=== PATIENT | female | born 1965 | race Asian ===

== ENCOUNTER 2023-06-25 20:10 | Inpatient (IN) ==
[2023-06-25 23:02] LABS: Albumin Globulin Ratio 1.4 (0.9-2); Albumin Level 4.2 gm/dl (3.4-5.0); BUN Creatinine Ratio 21.5 (10-20); Bilirubin,Total 0.8 mg/dl (0.2-1.0); Calcium 9.5 mg/dl (8.6-10.3); Creatinine Clr Calc Pharmacy 73.3 ml/min; Est GFR (African American) 96.3 ml/min; Est GFR (Non-African American) 83.1 ml/min; Globulin 2.9 gm/dl (2.5-4.0); Potassium 3.5 mmol/L (3.5-5.1); Total Protein 7.1 gm/dl (6.0-8.3)
[2023-06-25 23:06] LABS: Basophils # (auto) 0.03 K/uL (0-0.2); Basophils % (auto) 0.4 %; Eosinophils # (auto) 0.01 K/uL (0-0.50); Eosinophils % (auto) 0.1 %; Hematocrit (blood only) 42.1 % (37.0-47.0); Hemoglobin 14.1 g/dl (12.0-16.0); Immature Granulocytes # (auto) 0.02 K/uL (0.01-0.20); Immature Granulocytes % (auto) 0.2 %; Lymphocytes # (auto) 1.51 K/uL (1.2-3.4); Lymphocytes % (auto) 18.3 %; Mean Corpuscular Hemoglobin 27.9 pg (25.0-34.0); Mean Corpuscular Hgb Conc 33.5 g/dL (32.0-36.0); Mean Corpuscular Volume 83.4 fL (80.0-100.0); Mean Platelet Volume 9.9 fL (9.4-12.4); Monocytes # (auto) 0.52 K/uL (0.11-0.59); Monocytes % (auto) 6.3 %; Neutrophils # (auto) 6.16 K/uL (1.40-6.50); Neutrophils % (auto) 74.7 %; Platelet Count 285 K/uL (130-400); RDW Coefficient of Variation 13.2 % (11.5-14.5); RDW Standard Deviation 40.1 fL (36.4-46.3); Red Blood Count 5.05 M/uL (4.20-5.40); White Blood Count 8.25 K/ul (4.8-10.8)
[2023-06-25] MEDS ORDERED: LORazepam 2 MG/1 ML VIAL IV PRN (23:27)
[2023-06-25] MEDS ORDERED: SODIUM CHLORIDE 0.9% 1000ML 1,000 ML IV SCH (23:30)
--- NOTE | 2023-06-25 23:44 | Emergency Department Note ---
Impression & Plan AMS (altered mental status) ED Provider Note ED Provider Note NAME: JULIAN VYAS AGE:58 SEX: Female : 1965 ARRIVES VIA: EMS INFORMANT: ED PROVIDER(s): Laura Rosales DO CHIEF COMPLAINT: Altered mental status, agitation, aggression HPI: This is a 58-year-old female who presents via EMS with her , a local physician who provides the history. He states patient had a reaction to a skin cream and was seen by dermatology on the . She was given an injection of Kenalog in the office. He states the facial swelling and redness improved, however today she began to become agitated and eventually aggressive to the point where he had to contact police who had to restrain her. He states that she does not take any medications, she has not recently been ill, no recent falls or trauma. No prior reactions to medications. No history of mental health issues. Patient was given 2 mg of Ativan by EMS and was able calm down. PAST MEDICAL HISTORY:See Below PAST SURGICAL HISTORY:See Below FAMILY HISTORY:See Below SOCIAL HISTORY:See Below HOME MEDICATIONS:See Below ALLERGIES:See Below VITALS:See Below PHYSICAL EXAMINATION: GENERAL: alert, well appearing, well nourished, no distress, non-toxic FACE: No evidence of facial swelling or erythema EYE EXAM: normal conjunctiva, PERRL and EOM's grossly intact OROPHARYNX: no exudate, no erythema, lips, buccal mucosa, and tongue normal and mucous membranes are moist NECK: supple, no nuchal rigidity, no adenopathy, non-tender LUNGS: Clear to auscultation. Normal chest wall mechanics, no w/r/r HEART: no murmurs, S1 normal and S2 normal ABDOMEN: abdomen soft, non-tender, normo-active bowel sounds, no masses, no rebound or guarding. SKIN: no rashes, petechiae, orbruising UPPER EXTREMITIES: upper extremities are grossly normal. FROM, nml pulses b/l. LOWER EXTREMITIES: No pitting edema. FROM, nml pulses b/l. NEURO EXAM: somnolent and mildly confused, cranial nerves II-XII grossly intact, normal speech, no facial droop,patient moving arms and legs spontaneously. Gross sensation intact. No ataxia. Vital Signs: reviewed and remarkable Differential Diagnosis: CVA, ICH, electrolyte abnormality, medication ADR, dehydration, dysrhythmia, as well as others were considered MEDICAL DECISION MAKING: This is a 58-year-old female presents emergency department with her at bedside due to concern for agitation, aggression, and altered mental status. Patient afebrile and vital signs stable. Labs drawn and sent, IV established, and patient placed on telemetry. Patient given gentle IV fluid hydration. Patient sent for head CT which was reassuring. Labs also reassuring however I did add additional labs after discussing the history with the at bedside. Case discussed with the hospitalist for additional evaluation and management. Patient did not require any additional Ativan while in the emergency room. No ectopy or dysrhythmia noted on telemetry. Vital signs were stable throughout. At this time I do not suspect occult infectious etiology or acute QUALITY PROCESS LEAD pathology. Patient had a nonfocal neuro exam, I do not suspect CVA. At this time I suspect more likely severe reaction to the steroid injection from dermatology. Consultation(s): 0150: Discussed with Dr. Saenz for additional evaluation and management. Other labs and UA still pending at this time. We did discuss results of labs and CT at this time. ER Treatment Provided: See below Diagnostics Interpreted By Me: -ECG: [] -Cardiac Monitoring: An order was placed for continuous cardiac monitoring. The monitor shows a rate of 80 with normal sinus rhythm. -Laboratory studies: As stated above and show below. -Imaging studies: CT head: no obvious ICH Triage Nursing Note Reviewed Prior/Outside Records Reviewed Past Med/Surg History Social History Smoking Status: Never smoker Second Hand Exposure: No; Do You Dip or Chew Tobacco: No; Tobacco Cessation Education Requested by Patient: No Hx Alcohol Use: No Hx Substance Use: No Preferred Language: Italian Communication Ability: Effective Lining Brusher Required: No Beliefs That Will Affect Care: None Current Living Situation: Spouse Other Information That Helps Us Care for You: No Feels Safe at Home: Yes Safety Concerns: Feels Safe At This Time Assistive Devices: None Allergies Allergies Allergy/AdvReac Type Severity Reaction Status Date / Time No Known Allergies Allergy Verified 06/25/23 23:30 Home Meds Home Medications Medication Instructions Recorded Confirmed acetaminophen 500 mg tablet 1,000 mg PO DIRECTED PRN Pain 06/25/23 06/25/23 (Tylenol Extra Strength) Results & Data (ED) Vital Signs Vital Signs - 24 hr 06/25/23 20:32 06/25/23 20:44 06/25/23 22:48 Temperature 36.8 C Temperature Source Oral Pulse Rate 96 H 88 Pulse Rate [Apical] Respiratory Rate 16 18 Respiratory Effort / Characteristics Non-Labored Spontaneous Non-Labored Spontaneous Respiratory Depth Normal Normal Respiratory Pattern Regular Regular Blood Pressure 118/75 Blood Pressure [Right Arm] 118/78 Blood Pressure Mean 89 Blood Pressure Mean [Right Arm] 91 Blood Pressure Position Lying Blood Pressure Position [Right Arm] Lying Pulse Oximetry 92 92 Oxygen Delivery Method Room Air Room Air Sepsis Recent Fever Within 48 Hours No Sepsis New/Unexplained Change in Mental Status No Sepsis Action Taken by Nursing No Action Required 06/25/23 23:30 06/26/23 01:00 Temperature Temperature Source Pulse Rate Pulse Rate [Apical] 78 75 Respiratory Rate 16 16 Respiratory Effort / Characteristics Respiratory Depth Respiratory Pattern Blood Pressure Blood Pressure [Right Arm] 114/76 103/66 Blood Pressure Mean Blood Pressure Mean [Right Arm] 88 78 Blood Pressure Position Blood Pressure Position [Right Arm] Pulse Oximetry 95 Oxygen Delivery Method Room Air Sepsis Recent Fever Within 48 Hours Sepsis New/Unexplained Change in Mental Status Sepsis Action Taken by Nursing Laboratory Data 06/25/23 20:41 06/25/23 20:41 Lab Results 06/25/23 06/25/23 06/25/23 Range/Units 20:41 20:41 20:41 WBC 8.25 (4.8-10.8) K/ul RBC 5.05 (4.20-5.40) M/uL Hgb 14.1 (12.0-16.0) g/dl Hct 42.1 (37.0-47.0) % MCV 83.4 (80.0-100.0) fL MCH 27.9 (25.0-34.0) pg MCHC 33.5 (32.0-36.0) g/dL RDW Std Deviation 40.1 (36.4-46.3) fL RDW Coeff of Kylee 13.2 (11.5-14.5) % Plt Count 285 (130-400) K/uL MPV 9.9 (9.4-12.4) fL Immature Gran % (Auto) 0.2 % Neut % (Auto) 74.7 % Lymph % (Auto) 18.3 % [place]cdowell % (Auto) 6.3 % Eos % (Auto) 0.1 % Baso % (Auto) 0.4 % Neut # (Auto) 6.16 (1.40-6.50) K/uL Lymph # (Auto) 1.51 (1.2-3.4) K/uL [place] # (Auto) 0.52 (0.11-0.59) K/uL Eos # (Auto) 0.01 (0-0.50) K/uL Baso # (Auto) 0.03 (0-0.2) K/uL Immature Gran # (Auto) 0.02 (0.01-0.20) K/uL Sodium 136 (136-145) mmol/L Potassium 3.5 (3.5-5.1) mmol/L Chloride 104 (98-107) mmol/L Carbon Dioxide 23 (21-32) mmol/L Anion Gap 9 (3-11) BUN 17 (6-23) mg/dl Creatinine 0.79 (0.6-1.2) mg/dl Est Cr Clr Drug Dosing 73.3 ml/min Est GFR ( Amer) 96.3 ml/min Est GFR (Non-Af Amer) 83.1 ml/min BUN/Creatinine Ratio 21.5 H (10-20) Glucose 149 H (70-99(Fasting)) mg/dl Calcium 9.5 (8.6-10.3) mg/dl Magnesium 2.0 (1.7-2.4) mg/dl Total Bilirubin 0.8 (0.2-1.0) mg/dl AST 17 (13-39) U/L ALT 20 (7-52) U/L Alkaline Phosphatase 68 (34-104) U/L Troponin I High Sens 2.6 (0-14) pg/ml Total Protein 7.1 (6.0-8.3) gm/dl Albumin 4.2 (3.4-5.0) gm/dl Globulin 2.9 (2.5-4.0) gm/dl Albumin/Globulin Ratio 1.4 (0.9-2) TSH 1.839 (0.300-4.500) uIu/ml Anaplasma Smear Babesia Smear Lyme Disease IgG Ab (Negative) Lyme Disease IgM Ab (Negative) SARS-CoV-2 (PCR) (Negative) Influenza Type A (PCR) (Neg) Influenza Type B (PCR) (Neg) RSV (RT-PCR) (Neg) 06/26/23 06/26/23 06/26/23 Range/Units 00:08 00:08 01:50 WBC (4.8-10.8) K/ul RBC (4.20-5.40) M/uL Hgb (12.0-16.0) g/dl Hct (37.0-47.0) % MCV (80.0-100.0) fL MCH (25.0-34.0) pg MCHC (32.0-36.0) g/dL RDW Std Deviation (36.4-46.3) fL RDW Coeff of Kylee (11.5-14.5) % Plt Count (130-400) K/uL MPV (9.4-12.4) fL Immature Gran % (Auto) % Neut % (Auto) % Lymph % (Auto) % [place] % (Auto) % Eos % (Auto) % Baso % (Auto) % Neut # (Auto) (1.40-6.50) K/uL Lymph # (Auto) (1.2-3.4) K/uL [place] # (Auto) (0.11-0.59) K/uL Eos # (Auto) (0-0.50) K/uL Baso # (Auto) (0-0.2) K/uL Immature Gran # (Auto) (0.01-0.20) K/uL Sodium (136-145) mmol/L Potassium (3.5-5.1) mmol/L Chloride (98-107) mmol/L Carbon Dioxide (21-32) mmol/L Anion Gap (3-11) BUN (6-23) mg/dl Creatinine (0.6-1.2) mg/dl Est Cr Clr Drug Dosing ml/min Est GFR ( Amer) ml/min Est GFR (Non-Af Amer) ml/min BUN/Creatinine Ratio (10-20) Glucose (70-99(Fasting)) mg/dl Calcium (8.6-10.3) mg/dl Magnesium (1.7-2.4) mg/dl Total Bilirubin (0.2-1.0) mg/dl AST (13-39) U/L ALT (7-52) U/L Alkaline Phosphatase (34-104) U/L Troponin I High Sens (0-14) pg/ml Total Protein (6.0-8.3) gm/dl Albumin (3.4-5.0) gm/dl Globulin (2.5-4.0) gm/dl Albumin/Globulin Ratio (0.9-2) TSH (0.300-4.500) uIu/ml Anaplasma Smear See Comment Babesia Smear See Comment Lyme Disease IgG Ab Negative (Negative) Lyme Disease IgM Ab Equivocal A (Negative) SARS-CoV-2 (PCR) NEGATIVE (Negative) Influenza Type A (PCR) Negative (Neg) Influenza Type B (PCR) Negative (Neg) RSV (RT-PCR) Negative (Neg) Administered Medications Sodium Chloride (Nss 1000ml) 1,000 mls @ 100 mls/hr IV .Q10H KWESI Stop: 06/27/23 00:25 Last Admin: 06/26/23 05:20 Dose: 100 mls/hr Documented By: EKF Doxycycline Hyclate 100 mg/ (Dextrose) 110 mls @ 50 mls/hr IV Q12H KWESI Stop: 07/06/23 04:29 Last Admin: 06/26/23 05:20 Dose: 50 mls/hr Documented By: EKF Discontinued Medications Sodium Chloride (Nss 1000ml) 1,000 mls @ 125 mls/hr IV .Q8H KWESI Stop: 07/25/23 23:29 Last Infusion: 06/26/23 04:45 Dose: 0 mls/hr Documented By: Admin: 06/26/23 00:05 Dose: 125 mls/hr Documented By: KMF Lorazepam (Lorazepam 2 Mg/1 Ml Vial) 0.5 mg IV Q1H PRN PRN Reason: Anxiety/Agitation Stop: 07/25/23 23:26 Last Admin: 06/25/23 23:52 Dose: 0.5 mg Documented By: CARLYF Imaging Data Radiologist's Impression: Head CT 06/25/23 23:27 Exam(s): CT HEAD Without Contrast EXAM: CT Head Without Intravenous Contrast CLINICAL HISTORY: Reason for exam: ams. TECHNIQUE: Axial computed tomography images of the head/brain without intravenous contrast. CTDI is 38.31 mGy and DLP is 625.8 mGy-cm. Automated exposure control was utilized for the study. A dose lowering technique was utilized adhering to the principles of ALARA. COMPARISON: No relevant prior studies available. FINDINGS: Brain: Unremarkable. No hemorrhage. No significant white matter disease. No edema. Ventricles: Unremarkable. No ventriculomegaly. Bones/joints: Unremarkable. No acute fracture. Soft tissues: Unremarkable. Sinuses: Unremarkable as visualized. No acute sinusitis. Mastoid air cells: Unremarkable as visualized. No mastoid effusion. IMPRESSION: Normal head/brain CT. Electronically signed by: Christos Samayoa MD 06/26/23 00:17 AM Discharge Plan Visit Data Chief Complaint: Allergic Reaction Stated Complaint: Medication Reaction, Hallucinations, Combattive ED Provider: Laura Rosales Discharge Problem: AMS (altered mental status) Patient Disposition: Admitted As Inpatient Discharge Instructions Interventions: ED Discharge Assessment Last Done: 06/26/23 03:50
--- NOTE | 2023-06-26 00:18 | CT Scan Report ---
Exam(s): CT HEAD Without Contrast EXAM: CT Head Without Intravenous Contrast CLINICAL HISTORY: Reason for exam: ams. TECHNIQUE: Axial computed tomography images of the head/brain without intravenous contrast. CTDI is 38.31 mGy and DLP is 625.8 mGy-cm. Automated exposure control was utilized for the study. A dose lowering technique was utilized adhering to the principles of ALARA. COMPARISON: No relevant prior studies available. FINDINGS: Brain: Unremarkable. No hemorrhage. No significant white matter disease. No edema. Ventricles: Unremarkable. No ventriculomegaly. Bones/joints: Unremarkable. No acute fracture. Soft tissues: Unremarkable. Sinuses: Unremarkable as visualized. No acute sinusitis. Mastoid air cells: Unremarkable as visualized. No mastoid effusion. IMPRESSION: Normal head/brain CT. Electronically signed by: Christos Samayoa MD 06/26/23 00:17 AM
[2023-06-26 00:22] LABS: Troponin I High Sensitivity 2.6 pg/ml (0-14)
[2023-06-26 01:07] LABS: Lyme Ab IgG w/WB Rflx Negative (Negative)
[2023-06-26 01:12] LABS: Lyme Ab IgM w/WB Rflx Equivocal (Negative)
[2023-06-26 02:45] LABS: Influenza A virus by PCR Negative (Neg); Influenza B virus by PCR Negative (Neg); RSV by PCR Negative (Neg); SARS CoV2 RNA(COVID-19) Ceph NEGATIVE (Negative)
[2023-06-26] MEDS ORDERED: POLYETHYLENE (MIRALAX) 17 GM PACK PO PRN (04:26)
[2023-06-26] MEDS ORDERED: SODIUM CHLORIDE 0.9% 1000ML 1,000 ML IV SCH (04:26)
[2023-06-26] MEDS ORDERED: HALOPERIDOL LACTATE 5 MG/ML 1 ML VIAL IM PRN (04:26)
[2023-06-26] MEDS ORDERED: DOXYCYCLINE HYCLATE 100 MG in DEXTROSE 5% 100 ML IV SCH ×2 (04:30→22:00)
[2023-06-26 06:12] LABS: Appearance Urine Cloudy (Clear); Bacteria Urine Automated Negative (Negative); Bilirubin Urine Negative (Negative); Blood Urine Negative (Negative); Color Urine Yellow; Glucose Urine UA Negative (Negative); Ketones Urine 1+ (Negative); Leukocyte Esterase Urine Negative (Negative); Nitrite Urine Negative (Negative); Protein Urine Negative (Negative); RBC Urine Automated 0-4 /hpf (0-4); Specific Gravity Urine 1.021 (1.000-1.030); Urobilinogen Urine Negative (Negative); pH Urine 5.5 (4.5-7.5)
--- NOTE | 2023-06-26 07:39 | History & Physical Report ---
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 Patient had his reaction to skin cream and sent to dermatology on June 17 and is given a steroid injection Kenalog in the office. Last 2 -3 days patient is getting agitated as per the 's who is a [facility] physician. Last night patient was very agitated asked to call police restrain her and EMS give 2 mg IV Ativan to calm her down. Patient was apparently fine for the steroid injection has no recent illness or falls as per the ER . Patient is mostly drowsy denies any pain. in the room helped with most of H&P. Afebrile. No complaints of chest pain or shortness of breath. No nausea. Currently hemodynamically stable. Past medical history as mentioned above Past surgical history colonoscopy, IR biopsy, removal of submaxillary gland on the right side. Social history no smoking no alcohol no drug use Family history paternal cousin has breast cancer Allergies Allergy/AdvReac Type Severity Reaction Status Date / Time No Known Allergies Allergy Verified 06/25/23 23:30 Home Medications Medication Instructions Recorded Confirmed Type acetaminophen 500 mg tablet 1,000 mg PO DIRECTED PRN Pain 06/25/23 06/25/23 History (Tylenol Extra Strength) Past Med/Surg History Social History Smoking Status: Never smoker Second Hand Exposure: No; Do You Dip or Chew Tobacco: No; Tobacco Cessation Education Requested by Patient: No Hx Alcohol Use: No Hx Substance Use: No Preferred Language: Korean Communication Ability: Effective Automatic Chief Required: No Beliefs That Will Affect Care: None Current Living Situation: Spouse Other Information That Helps Us Care for You: No Feels Safe at Home: Yes Safety Concerns: Feels Safe At This Time Assistive Devices: None Review of Systems Review of Systems: Unobtainable due to reduced consciousness Physical Exam Physical Exam: General- Drowsy Head- atraumatic Eyes- PERRL ENT- oropharynx dry Neck- supple, no JVD, Lungs- clear to auscultation and percussion, no added sounds Heart- regular rate rhythm; no murmur, no gallop, Abdomen- normal bowel sounds, soft, nontender, no distension Extremities- no pretibial edema, no erythema Neuro- drowsy, moves extremities Skin- warm & dry Results & Data Results & Data Vital Signs (Past 12 Hours) Vital Signs Temp Pulse Pulse Pulse Resp BP BP 06/26/23 07:11 36.6 C 80 15 131/83 06/26/23 04:26 36.3 C L 80 18 127/82 06/26/23 03:28 70 16 123/73 06/26/23 01:00 75 16 103/66 06/25/23 23:30 78 16 114/76 06/25/23 22:48 18 118/78 06/25/23 20:44 36.8 C 88 16 118/75 06/25/23 20:32 96 H Pulse Ox O2 Del Method 06/26/23 07:11 97 Room Air 06/26/23 04:26 98 Room Air 06/26/23 03:28 06/26/23 01:00 95 Room Air 06/25/23 23:30 06/25/23 22:48 92 Room Air 06/25/23 20:44 92 Room Air 06/25/23 20:32 Diagnostic Findings Laboratory Results WBC 8.25 K/ul (4.8-10.8) 06/25/23 20:41 RBC 5.05 M/uL (4.20-5.40) 06/25/23 20:41 Hgb 14.1 g/dl (12.0-16.0) 06/25/23 20:41 Hct 42.1 % (37.0-47.0) 06/25/23 20: MCV 83.4 fL (80.0-100.0) 06/25/23 20: MCH 27.9 pg (25.0-34.0) 06/25/23 20:41 MCHC 33.5 g/dL (32.0-36.0) 06/25/23 20: RDW Std Deviation 40.1 fL (36.4-46.3) 06/25/23 20: RDW Coeff of Kylee 13.2 % (11.5-14.5) 06/25/23 20: Plt Count 285 K/uL (130-400) 06/25/23 20: MPV 9.9 fL (9.4-12.4) 06/25/23 20: Immature Gran % (Auto) 0.2 % 06/25/23 20: Neut % (Auto) 74.7 % 06/25/23 20: Lymph % (Auto) 18.3 % 06/25/23 20:41 [place] % (Auto) 6.3 % 06/25/23 20: Eos % (Auto) 0.1 % 06/25/23 20: Baso % (Auto) 0.4 % 06/25/23 20:41 Neut # (Auto) 6.16 K/uL (1.40-6.50) 06/25/23 20:41 Lymph # (Auto) 1.51 K/uL (1.2-3.4) 06/25/23 20:41 [place] # (Auto) 0.52 K/uL (0.11-0.59) 06/25/23 20:41 Eos # (Auto) 0.01 K/uL (0-0.50) 06/25/23 20:41 Baso # (Auto) 0.03 K/uL (0-0.2) 06/25/23 20:41 Immature Gran # (Auto) 0.02 K/uL (0.01-0.20) 06/25/23 20:41 Sodium 136 mmol/L (136-145) 06/25/23 20:41 Potassium 3.5 mmol/L (3.5-5.1) 06/25/23 20:41 Chloride 104 mmol/L (98-107) 06/25/23 20:41 Carbon Dioxide 23 mmol/L (21-32) 06/25/23 20:41 Anion Gap 9 (3-11) 06/25/23 20:41 BUN 17 mg/dl (6-23) 06/25/23 20:41 Creatinine 0.79 mg/dl (0.6-1.2) 06/25/23 20:41 Est Cr Clr Drug Dosing 73.3 ml/min 06/25/23 20:41 Est GFR ( Amer) 96.3 ml/min 06/25/23 20:41 Est GFR (Non-Af Amer) 83.1 ml/min 06/25/23 20:41 BUN/Creatinine Ratio 21.5 (10-20) H 06/25/23 20:41 Glucose 149 mg/dl (70-99(Fasting)) H 06/25/23 20:41 Calcium 9.5 mg/dl (8.6-10.3) 06/25/23 20:41 Magnesium 2.0 mg/dl (1.7-2.4) 06/25/23 20:41 Total Bilirubin 0.8 mg/dl (0.2-1.0) 06/25/23 20:41 AST 17 U/L (13-39) 06/25/23 20:41 ALT 20 U/L (7-52) 06/25/23 20:41 Alkaline Phosphatase 68 U/L (34-104) 06/25/23 20:41 Troponin I High Sens 2.6 pg/ml (0-14) 06/25/23 20:41 Total Protein 7.1 gm/dl (6.0-8.3) 06/25/23 20:41 Albumin 4.2 gm/dl (3.4-5.0) 06/25/23 20:41 Globulin 2.9 gm/dl (2.5-4.0) 06/25/23 20:41 Albumin/Globulin Ratio 1.4 (0.9-2) 06/25/23 20:41 TSH 1.839 uIu/ml (0.300-4.500) 06/25/23 20:41 Urine Color Yellow 06/26/23 05:40 Urine Appearance Cloudy (Clear) A 06/26/23 05:40 Urine pH 5.5 (4.5-7.5) 06/26/23 05:40 Ur Specific [place] 1.021 (1.000-1.030) 06/26/23 05:40 Urine Protein Negative (Negative) 06/26/23 05:40 Urine Glucose (UA) Negative (Negative) 06/26/23 05:40 Urine Ketones 1+ (Negative) H 06/26/23 05:40 Urine Blood Negative (Negative) 06/26/23 05:40 Urine Nitrite Negative (Negative) 06/26/23 05:40 Urine Bilirubin Negative (Negative) 06/26/23 05:40 Urine Urobilinogen Negative (Negative) 06/26/23 05:40 Ur Leukocyte Esterase Negative (Negative) 06/26/23 05:40 Urine WBC (Auto) 1-5 /hpf (0-5) 06/26/23 05:40 Urine RBC (Auto) 0-4 /hpf (0-4) 06/26/23 05:40 U Hyaline Cast (Auto) 1-5 /lpf (0-5) 06/26/23 05:40 U Epithel Cells (Auto) 10-20 /lpf (0-5) H 06/26/23 05:40 Urine Bacteria (Auto) Negative (Negative) 06/26/23 05:40 Anaplasma Smear See Comment 06/26/23 00:08 Babesia Smear See Comment 06/26/23 00:08 Lyme Disease IgG Ab Negative (Negative) 06/26/23 00:08 Lyme Disease IgM Ab Equivocal (Negative) A 06/26/23 00:08 SARS-CoV-2 (PCR) NEGATIVE (Negative) 06/26/23 01:50 Influenza Type A (PCR) Negative (Neg) 06/26/23 01:50 Influenza Type B (PCR) Negative (Neg) 06/26/23 01:50 RSV (RT-PCR) Negative (Neg) 06/26/23 01:[address] 06/25/23 23:27 Exam(s): CT HEAD Without Contrast EXAM: CT Head Without Intravenous Contrast CLINICAL HISTORY: Reason for exam: ams. TECHNIQUE: Axial computed tomography images of the head/brain without intravenous contrast. CTDI is 38.31 mGy and DLP is 625.8 mGy-cm. Automated exposure control was utilized for the study. A dose lowering technique was utilized adhering to the principles of ALARA. COMPARISON: No relevant prior studies available. FINDINGS: Brain: Unremarkable. No hemorrhage. No significant white matter disease. No edema. Ventricles: Unremarkable. No ventriculomegaly. Bones/joints: Unremarkable. No acute fracture. Soft tissues: Unremarkable. Sinuses: Unremarkable as visualized. No acute sinusitis. Mastoid air cells: Unremarkable as visualized. No mastoid effusion. IMPRESSION: Normal head/brain CT. Electronically signed by: Christos Samayoa MD 06/26/23 00:17 AM Code Status & VTE Plan VTE Prophylaxis Plan VTE Prophylaxis will be ordered: Yes
[2023-06-26] MEDS: ENOXAPARIN INJ 40 MG/0.4 ML SYR SQ SCH (08:02)
[2023-06-26 08:03] LABS: Calcium 8.9 mg/dl (8.6-10.3); Magnesium 2.1 mg/dl (1.7-2.4); Potassium 3.8 mmol/L (3.5-5.1)
[2023-06-26 08:05] LABS: Basophils # (auto) 0.03 K/uL (0-0.2); Basophils % (auto) 0.4 %; Eosinophils # (auto) 0.04 K/uL (0-0.50); Eosinophils % (auto) 0.5 %; Hematocrit (blood only) 39.9 % (37.0-47.0); Hemoglobin 13.5 g/dl (12.0-16.0); Immature Granulocytes # (auto) 0.01 K/uL (0.01-0.20); Immature Granulocytes % (auto) 0.1 %; Lymphocytes # (auto) 2.47 K/uL (1.2-3.4); Lymphocytes % (auto) 31.7 %; Mean Corpuscular Hgb Conc 33.8 g/dL (32.0-36.0); Mean Corpuscular Volume 82.8 fL (80.0-100.0); Mean Platelet Volume 9.6 fL (9.4-12.4); Monocytes # (auto) 0.59 K/uL (0.11-0.59); Monocytes % (auto) 7.6 %; Neutrophils # (auto) 4.64 K/uL (1.40-6.50); Neutrophils % (auto) 59.7 %; Platelet Count 237 K/uL (130-400); RDW Coefficient of Variation 13.4 % (11.5-14.5); RDW Standard Deviation 40.2 fL (36.4-46.3); Red Blood Count 4.82 M/uL (4.20-5.40); White Blood Count 7.78 K/ul (4.8-10.8)
[2023-06-26 08:09] LABS: BUN Creatinine Ratio 27.3 (10-20); Creatinine Clr Calc Pharmacy 105.3 ml/min; Est GFR (African American) 120.7 ml/min; Est GFR (Non-African American) 104.1 ml/min
--- NOTE | 2023-06-26 12:55 | Electrocardiogram Report ---
Test Reason : Blood Pressure : / mmHG Vent. Rate : 080 BPM Atrial Rate : 080 BPM P-R Int : 144 ms QRS Dur : 078 ms QT Int : 374 ms P-R-T Axes : 064 048 050 degrees QTc Int : 431 ms Normal sinus rhythm with sinus arrhythmia Left atrial enlargement Borderline ECG No previous ECGs available Confirmed by Keenan Petersen ([id number]) on 06/26/2023 12:54:53 PM Referred By: REFERRED SELF Confirmed By:Keenan Petersen
--- NOTE | 2023-06-26 17:47 | Hospitalist Progress Note ---
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 Acute gavi -Being attributed to steroid induced psychosis but her last exposure to steroid was 06/17. -History in the past of what sounds to be manic episodes ("mind racing", being unable to sleep for prolonged periods of time) -I am concerned she may have underlying mood disorder. Will ask for psychiatry consultation -Has not required ativan or haldol PRN while on unit. 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 Once in the morning and again in the afternoon. She is calm but becomes easily agitated. In the afternoon, she was exhibiting paranoid behavior and would not let me stand near her bed or touch anything in the room. Her speech is quite pressure d and rambling making history taking difficult. and son present in room during morning encounter. Son present in room during afternoon encounter. It appears patient has a history of psychosis attributed to steroid exposure. But she also recounts periods of time when she had diffculty sleeping-- she describes a 10 day period of sleeplessness because she was "jet lagged" Her last steroid exposure was 06/17/23 Patient admits that her mind is "racing" and has difficulty controlling her emotions. Review of Systems Review of Systems: as above Physical Exam Physical Exam: Calm, easily agitated and angry Respiratory: breathing comfortably on room air, no wheezing/rhonchi Cardiovascular: regular rate and rhythm, no murmurs Gastrointestinal (Abdomen): soft, non tender Musculoskeletal: No edema Neurologic: awake, alert, spontaneously moving extremities Psychiatric: speech is pressured, both tangential and circumferential, exhibits paranoid behavior Results & Data Results & Data Vital Signs (Past 12 Hours) Vital Signs Temp Pulse Resp BP Pulse Ox O2 Del Method 06/26/23 14:54 36.5 C 89 15 117/74 95 Room Air 06/26/23 07:11 36.6 C 80 15 131/83 97 Room Air
[2023-06-26] MEDS ORDERED: DOXYCYCLINE HYCLATE 100 MG CAP PO SCH (21:00)
[2023-06-26] MEDS: ACETAMINOPHEN 325 MG TAB PO PRN ×2 (22:08→22:26)
[2023-06-26] MEDS ORDERED: LORazepam 2 MG/1 ML VIAL IV STA (22:29)
[2023-06-26] MEDS ORDERED: LORazepam 0.5 MG TAB PO STA (22:30)
[2023-06-26] MEDS: DOXYCYCLINE SUSP 25 MG/5 ML 60ML PO SCH (22:51)
[2023-06-27] MEDS: ACETAMINOPHEN 325 MG TAB PO PRN ×2 (05:05→12:06)
[2023-06-27] MEDS: ENOXAPARIN INJ 40 MG/0.4 ML SYR SQ SCH (07:03)
[2023-06-27] MEDS: DOXYCYCLINE SUSP 25 MG/5 ML 60ML PO SCH (08:44)
--- NOTE | 2023-06-27 11:02 | Psychiatric Consultation ---
Date of Consultation June 27, 2023 Impression / Recommendations Impression Diagnostically consistent with unspecified mood disorder with differential including gavi 2/2 steroid use versus BPAD type II with emergence of gavi in setting of steroid use versus hyperactive delirium. Psychiatric history suggestive of possible history of BPAD type II given reports of past possible episodes of hypomania versus ADHD versus OCD with periods of hyperfixation and insomnia. Given history of steroid-induced mood changes would caution any future steroid use and if absolutely necessary consider using olanzapine while on steroids to help protect sleep patterns and reduce likelihood of emergence of gavi/agitation. Given question of possible BPAD type II recommend outpatient psychiatry follow- up for diagnostic clarification and monitoring to ensure full resolution of suspected steroid-induced mood symptoms and consideration for mood stabilizer such as lamictal moving forward. (1) Mood disorder due to a general medical condition: (2) Bipolar 2 disorder: (3) History of recent steroid use: Plan -Recommend olanzapine 2.5mg PO BID or 5mg HS for next 2-3 days to ensure resolution of symptoms with additional two week supply available as needed if symptoms of gavi/psychosis persist or re-emerge. 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 Psychiatry consulted for recommendations for management given concern for possible gavi. Chief Complaint "I'm here for an emergency with me, it was imaginary but felt real to me". History of Present Illness Clarisa had a recent steroid injection and then started to have decreased sleep and abrupt change in behavior with increased agitation and aggression. She has never been aggressive before and today denies that she would ever want to hurt anyone. She recalls not sleeping well since having the steroid and got confused by a pop-up ad on her grandchildren's ipad and felt paranoid from this. Feels that her thoughts become "hyperactive" after taking steroids and she has difficulty slowing down her thoughts or shutting them off to go to sleep. She remains somewhat circumferential in her thought process today but is fully oriented and can describe past episodes of racing thoughts and poor sleep after requiring steroids last fall and around [facility] but never to this extent/extreme. Her son is at bedside and shares that his mother will at times go 2-3 weeks only sleeping 2-3 hours per night and Clarisa recalls having more energy during these episodes, wanting to get lots of organizing done in the house and is often less bothered by physical pain limitations during these episodes. Both deny any history of grandiosity or acute delusions during this times but her notes that she is often more irritable during these episodes. She denies any history of formal psychiatric diagnoses but family has wondered about possible ADHD or OCD. She has experienced depression and anxiety before. Denies any history of psychiatric hospitalizations nor medication trials. No history of suicide attempts. Family history of mother with anxiety and depression, daughter with ADHD. No history of substance use or use of any new supplements. Allergies Allergy/AdvReac Type Severity Reaction Status Date / Time No Known Allergies Allergy Verified 06/25/23 23:30 Home Medications Medication Instructions Recorded Confirmed Type acetaminophen 500 mg tablet 1,000 mg PO DIRECTED PRN Pain 06/25/23 06/25/23 History (Tylenol Extra Strength) doxycycline monohydrate 25 mg/5 mL 100 mg (20 mL) PO BID 8 days #320 06/27/23 Rx oral suspension mL olanzapine 2.5 mg tablet 2.5 mg PO BID #30 tabs 06/27/23 Rx Patient History Social History Smoking Status: Never smoker Second Hand Exposure: No; Do You Dip or Chew Tobacco: No; Hx Alcohol Use: No Hx Substance Use: No Preferred Language: Bulgarian Communication Ability: Effective Boiler Cleaner Required: No Beliefs That Will Affect Care: None Current Living Situation: Spouse Feels Safe at Home: Yes Assistive Devices: None Physical Exam Psychiatric: Orientation: alert, oriented x 3 and cooperative Apperance: appropriately dressed and appropriately groomed Eye Contact: good eye contact Motor Behavior: no abnormal motor movements; no psychomotor agitation Speech: normal rate/rhythm/volume of speech (expansive); no pressured speech Affect: + anxious affect Mood: + anxious mood Thought Process: + circumstantial thought process Thought Content: reality based without delusions Suicidal Thoughts: denies suicidal thoughts Homicidal Thoughts: denies homicidal thoughts Hallucinations: no auditory hallucinations and no visual hallucinations Insight: + fair insight Judgment: + fair judgement Vital Signs (Past 24 Hours): Last Vital Signs Temp 36.4 C L 06/27/23 07:10 Pulse 79 06/27/23 07:10 Resp 14 06/27/23 07:10 BP 99/59 L 06/27/23 07:10 Pulse Ox 94 06/27/23 07:10 O2 Del Method Room Air 06/27/23 07:10 Review of Systems All systems reviewed & are unremarkable except as noted in HPI & below Results & Data (PSY) Laboratory Results Na+ 136 & 135 Diagnostic Findings QTc normal on EKG on 06/26/2023 Medications Administered Acetaminophen (Acetaminophen 325 Mg Tab) 650 mg PO Q4H PRN PRN Reason: pain/fever Stop: 07/26/23 04:25 Last Admin: 06/27/23 05:05 Dose: 650 mg Documented By: Admin: 06/26/23 22:26 Dose: 650 mg Documented By: DILLAN Doxycycline Monohydrate (Doxycycline Susp 25 Mg/5 Ml 60ml) 100 mg PO BID [facility] Stop: 07/06/23 22:44 Last Admin: 06/27/23 08:44 Dose: 100 mg Documented By: Admin: 06/26/23 22:51 Dose: 100 mg Documented By: DILLAN Enoxaparin Sodium (Enoxaparin Inj 40 Mg/0.4 Ml Syr) 40 mg SQ Q24H [facility] Stop: 07/26/23 08:59 Last Admin: 06/27/23 07:03 Dose: Not Given Documented By: Admin: 06/26/23 08:02 Dose: Not Given Documented By: ZAC Coding Level of Care Code 26765 IN/OBS CONSULT LVL 4,60M Diagnoses Mood disorder due to a general medical condition F06.30 Bipolar 2 disorder F31.81 History of recent steroid use Z92.241 Time Spent (min) 75
[2023-06-27] MEDS ORDERED: OLANZapine ZYDIS 5 MG ORALLY DIS. TAB PO SCH ×2 (11:15→21:00)
[2023-06-28 03:09] LABS: 18KDIGG Band NON-REACTIVE; 23KDIGG Band NON-REACTIVE; 23KDIGM Band NON-REACTIVE; 28KDIGG Band NON-REACTIVE; 30KDIGG Band NON-REACTIVE; 39KDIGG Band NON-REACTIVE; 39KDIGM Band NON-REACTIVE; 41KDIGG Band NON-REACTIVE; 41KDIGM Band NON-REACTIVE; 45KDIGG Band NON-REACTIVE; 58KDIGG Band NON-REACTIVE; 66KDIGG Band NON-REACTIVE; 93KDIGG Band NON-REACTIVE; Lyme Antibodies, WB IgG NEGATIVE (NEGATIVE); Lyme Antibodies, WB IgM NEGATIVE (NEGATIVE)
[2023-06-29 05:08] LABS: Babesia microti DNA Not Detected (Not Detected)
[2023-07-01 11:09] LABS: Ehrlichia chaff DNA Bld Negative (Negative)
--- NOTE | 2023-07-01 21:02 | Discharge Summary ---
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 Patient had his reaction to skin cream and sent to dermatology on June 17 and is given a steroid injection Kenalog in the office. Last 2 -3 days patient is getting agitated as per the hunter franco's who is a [facility] physician. Last night patient was very agitated asked to call police restrain her and EMS give 2 mg IV Ativan to calm her down. Patient was apparently fine for the steroid injection has no recent illness or falls as per the ER . Patient is mostly drowsy denies any pain. in the room helped with most of H&P. Afebrile. No complaints of chest pain or shortness of breath. No nausea. Currently hemodynamically stable. Past medical history as mentioned above Past surgical history colonoscopy, IR biopsy, removal of submaxillary gland on the right side. Social history no smoking no alcohol no drug use Family history paternal cousin has breast cancer Principal Diagnosis Acute gaiv/psychosis Equivocal lyme test result Discharge Exam Drowsy but arousable, pleasant and cooperative Respiratory breathing comfortably on room air Cardiovascular regular rate and rhythm, no murmurs/rubs Neurologic drowsy but arousable, answers questions appropriately, spontaneously moving extremities Discharge Data Allergies Allergy/AdvReac Type Severity Reaction Status Date / Time No Known Allergies Allergy Verified 06/25/23 23:30 Consultations 06/26/23 01:52 ED Decision to Admit Stat 06/26/23 17:42 Consult Psychiatry Routine Ordered Studies 06/25/23 23:27 CT head/brain wo con Stat Hospital Course (1) AMS (altered mental status): 58-year-old female with past medical significant for 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 Acute gavi -Being attributed to steroid induced psychosis but her last exposure to steroid was 06/17. -History in the past of what sounds to be manic episodes ("mind racing", being unable to sleep for prolonged periods of time) -May have underlying bipolar disorder -Was seen by psychiatry here and recommend trial of olanzapine 0.25mg BID (initially 0.5mg BID was recommended but dose reduced due to drowsiness). Plan to be on olanzapine for next 2-3 days then as needed there after -Patient will need to follow up with a psychiatrist after discharge for further evaluation History of right submaxillary gland adenocarcinoma s/p surgery and radiation 2011 Questionable Lyme disease Equivocal Lyme screen. Western Blot ultimately negative (it was pending at discharge) Patient provided with prescription for doxycycline to keep on hand in the event her Western Blot came back positive. [facility] site safety coordinator was requested to notify family of negative result Total Time Total Time Spent Total Time Spent (In Minutes): 35 Discharge Plan Discharge Items Patient Disposition: Home - Self-Care Reason For Visit: AGITATION Discharge Diagnosis: Acute gavi/psychosis Equivocal lyme test result Condition on Discharge: Good Activity: Resume your previous activity Non-emergency contact: Primary Care Provider and Psychiatrist Call non-emergency contact if: you have any medication questions Follow-up/Referrals: Isidro Staton DO [Primary Care Provider] - (Date & Time 07/02/2023 1:40 PM Provider Isidro Staton DO Department [facility] ) Diet: Regular Addtl Attending Provider Instructions: You will be discharged on olanzapine 2.5mg twice a day x 2-3 days then twice a day as needed thereafter. 14 day course will be prescribed Please follow up with a psychiatrist to evaluate for underlying Bipolar Disorder Your Lyme Screen was Equivocal. Western Blot is still pending. We will notify you with result next Friday/Friday. Please reach out if you haven't heard back from us by Friday Pending Studies at Discharge: Yes Studies:: Lyme Western Blot Stand-Alone Forms: [facility] Medications and DC Order Prescriptions: New doxycycline monohydrate 25 mg/5 mL Suspension For Reconstitution 100 mg PO BID 8 Days Qty: 320 0RF olanzapine 2.5 mg tablet 2.5 mg PO BID Qty: 30 0RF Rx Instructions: BID x 3 days. Then BID as needed thereafter Continued acetaminophen [Tylenol Extra Strength] 500 mg Tablet 1,000 mg PO DIRECTED PRN (Reason: Pain) Discharge Orders: Discharge Order (Routine); Ordered 06/27/23 Ordered By: Mary Hemphill Admission Data Admit Date/Time: 06/26/23 03:00 Attending Provider: Mary Hemphill Admit Provider: Richard Saenz Primary Care Provider: Isidro Staton Other Providers: Richard Saenz ; Shivani Angel ; Emilia Sol ; James Martínez Other Interventions: Discharge Summary Assessment (RN) Last Done: 06/27/23 15:31
== END 2023-06-27 17:20 | disposition home or self-care (01) | DRG 885 ==
LOC: ED 20:10 → 3N 06-26 03:00